=== PATIENT | male | born 1965 | race Caucasian/White ===

== ENCOUNTER 2019-10-22 10:36 | Emergency (ER) | payer OTHER ==
[~2019-10-22] VITALS: Ht 170.2 cm; Wt 98.9 kg
[~2019-10-22 10:36] MED LIST: HYZAAR 100-121 UDTAB; INVOKANA100 MG; JANUMET 50-1,1 UDTAB; LIPITOR40 MG; METFORMIN HCL1000 MG; PRAVASTATIN SOD40 MG; ULTRACET PO
[2019-10-22] MEDS ORDERED: IBERSARTAN PO (10:47)
== END 2019-10-22 14:08 | disposition home or self-care (01) ==
LOC: ER 10:36
DX: M62.838 Other muscle spasm (principal); M54.2 Cervicalgia

== ENCOUNTER 2020-05-20 09:56 | Emergency (ER) | payer OTHER ==
[~2020-05-20] VITALS: Ht 170.2 cm; Wt 97.5 kg
[~2020-05-20 09:56] MED LIST changes: +IBERSARTAN PO
== END 2020-05-20 14:37 | disposition home or self-care (01) ==
LOC: ER 09:56
DX: R31.0 Gross hematuria (principal)

== ENCOUNTER 2020-05-22 00:22 | Emergency (ER) | payer OTHER ==
[~2020-05-22] VITALS: Ht 170.2 cm; Wt 97.5 kg
[2020-05-22] MEDS ORDERED: ULTRAM50 MG PO (07:57)
[2020-05-22] MEDS ORDERED: AMOX1TAB5 PO (07:57)
== END 2020-05-22 08:10 ==
LOC: ER 00:22
DX: R31.0 Gross hematuria (principal); R10.11 Right upper quadrant pain; N30.81 Other cystitis with hematuria

== ENCOUNTER 2020-11-26 14:35 | Emergency (ER) | payer OTHER ==
[~2020-11-26] VITALS: Ht 170.2 cm; Wt 97.5 kg
[~2020-11-26 14:35] MED LIST changes: +AMOX1TAB5 PO; +ULTRAM50 MG PO
== END 2020-11-26 20:27 | disposition home or self-care (01) ==
LOC: ER 14:35
DX: S61.022A Laceration with foreign body of left thumb without damage to nail, initial encounter (principal); W26.0XXA Contact with knife, initial encounter; Y93.89 Activity, other specified; Y92.89 Other specified places as the place of occurrence of the external cause; Y99.8 Other external cause status

== ENCOUNTER 2021-07-14 09:44 | Emergency (ER) | payer OTHER ==
[~2021-07-14] VITALS: Ht 170.2 cm; Wt 95.7 kg
[2021-07-14] MEDS ORDERED: ADULT LOW DOSE81 M1 PO (10:09)
[2021-07-14] MEDS ORDERED: AVAPRO300 MG PO (10:09)
== END 2021-07-14 12:59 | disposition home or self-care (01) ==
LOC: ER 09:44
DX: B34.9 Viral infection, unspecified (principal); R09.81 Nasal congestion; Z03.818 Encounter for observation for suspected exposure to other biological agents ruled out

== ENCOUNTER 2021-10-21 12:09 | Emergency (ER) | payer OTHER ==
[~2021-10-21] VITALS: Ht 170.2 cm; Wt 97.1 kg
[~2021-10-21 12:09] MED LIST changes: +ADULT LOW DOSE81 M1 PO; +AVAPRO300 MG PO
== END 2021-10-21 21:12 | disposition home or self-care (01) ==
LOC: ER 12:09
DX: K52.89 Other specified noninfective gastroenteritis and colitis (principal); R10.31 Right lower quadrant pain; E11.9 Type 2 diabetes mellitus without complications; K40.90 Unilateral inguinal hernia, without obstruction or gangrene, not specified as recurrent

== ENCOUNTER 2021-12-22 12:03 | Emergency (ER) | payer OTHER ==
[~2021-12-22] VITALS: Ht 170.2 cm; Wt 97.5 kg
[2021-12-22] MEDS ORDERED: KETO10TA2 PO (13:42)
[2021-12-22] MEDS ORDERED: METRONIDAZOLE500 MG PO (13:42)
[2021-12-22] MEDS ORDERED: LEVOFLOXACIN500 MG PO (13:42)
== END 2021-12-22 14:36 | disposition home or self-care (01) ==
LOC: ER 12:03
DX: L02.31 Cutaneous abscess of buttock (principal)

== ENCOUNTER 2022-01-21 17:16 | Emergency (ER) | payer OTHER ==
[~2022-01-21] VITALS: Ht 170.2 cm; Wt 97.5 kg
[~2022-01-21 17:16] MED LIST changes: +KETO10TA2 PO; +LEVOFLOXACIN500 MG PO; +METRONIDAZOLE500 MG PO
== END 2022-01-21 18:45 | disposition home or self-care (01) ==
LOC: ER 17:16
DX: L03.114 Cellulitis of left upper limb (principal)

== ENCOUNTER 2022-06-20 12:24 | Emergency (ER) | payer OTHER ==
[~2022-06-20] VITALS: Ht 170.2 cm; Wt 97.5 kg
== END 2022-06-20 13:31 | disposition home or self-care (01) ==
LOC: ER 12:24
DX: L05.01 Pilonidal cyst with abscess (principal); E11.9 Type 2 diabetes mellitus without complications; I10 Essential (primary) hypertension

== ENCOUNTER 2022-12-13 06:49 | Day surgery (SDC) | payer OTHER ==
[~2022-12-13] VITALS: Ht 170.2 cm; Wt 99.8 kg
[~2022-12-13 06:49] MED LIST changes: +CHILDREN'S ASPI81 MG PO; +OMEGA-31000 MG PO; +TOPROL XL50 M1 PO
[2022-12-13] MEDS ORDERED: PERCOCET 5-3251 EACH PO (09:35)
== END 2022-12-13 14:15 | disposition home or self-care (01) ==
LOC: CIR.AMB 06:49
PROVIDERS: ATTEND Surgery
DX: K60.3 Anal fistula (principal); K62.89 Other specified diseases of anus and rectum; I10 Essential (primary) hypertension; E66.09 Other obesity due to excess calories; E11.9 Type 2 diabetes mellitus without complications; Z79.84 Long term (current) use of oral hypoglycemic drugs; Z20.822 Contact with and (suspected) exposure to COVID-19

== ENCOUNTER 2023-03-28 06:00 | Day surgery (SDC) | payer OTHER ==
[~2023-03-28] VITALS: Ht 170.2 cm; Wt 98.4 kg
[~2023-03-28 06:00] MED LIST changes: +PERCOCET 5-3251 EACH PO
[2023-03-28] MEDS ORDERED: OXYC1TAB9 PO (10:38)
== END 2023-03-28 13:40 | disposition home or self-care (01) ==
LOC: CIR.AMB 06:00
PROVIDERS: ATTEND Surgery
DX: K60.3 Anal fistula (principal); K62.89 Other specified diseases of anus and rectum; Z20.822 Contact with and (suspected) exposure to COVID-19

== ENCOUNTER 2024-10-13 14:07 | Emergency (ER) | payer OTHER ==
[~2024-10-13] VITALS: Ht 170.2 cm; Wt 99.8 kg
[~2024-10-13 14:07] MED LIST changes: +OXYC1TAB9 PO
[2024-10-13] MEDS ORDERED: DOLOGEN CAPLET1 EACH (15:21)
[2024-10-13] MEDS ORDERED: FAMOtidine 20 MG TABLET PO STA (17:54)
[2024-10-13 18:19] LABS: HEMOGLOBIN 14.3 g/dL (13-16.00); MEAN CELL VOLUME 94.6 fL (80.0-100.00); MEAN CORPUSCULAR HGB CONC 34.9 g/dl (32.0-36.0); PLATELET COUNT 243 K/uL (150-450); RED BLOOD COUNT 4.33 M/uL (4.00-6.00); RED CELL DISTRIBUTION WIDTH 12.9 % (11.5-14.5)
== END 2024-10-13 20:21 | disposition home or self-care (01) ==
LOC: ER 14:09
PROVIDERS: General Practice
DX: B34.9 Viral infection, unspecified (principal); I10 Essential (primary) hypertension; Z20.822 Contact with and (suspected) exposure to COVID-19